=== PATIENT | male | born 1975 | race American Indian/Alaskan Native ===

== ENCOUNTER 2017-03-29 11:38 | Emergency (ER) | payer OTHER ==
[2017-03-29 12:03] VITALS: BP 145/88
[2017-03-29 13:18] LABS: Bilirubin,Urine NEG (Negative); Blood,Urine NEG (Negative); Ketones,Urine NEG (Negative); Leukocyte Esterase,Urine NEG (Negative); Mucus,Urine FEW /HPF; Nitrite,Urine NEG (Negative); Protein,Urine <15 mg/dL mg/dL (Negative); Urobilinogen,Urine < 2.0 mg/dL (<2.0); WBC,Urine < 1.0 /HPF (0.0-6.0)
[2017-03-29] MEDS ORDERED: TORADOL IM ONE (13:44)
--- NOTE | 2017-03-29 13:52 | Emergency Department Report ---
ED Back Pain/Injury HPI - General Chief Complaint: Back Pain/Injury Stated Complaint: BACK PAIN Time Seen by Provider: 03/29/17 13:06 Source: patient Limitations: No Limitations - History of Present Illness Initial Comments: This is a 41-year-old male nontoxic, well nourished in appearance, no acute signs of distress presents to the ED with c/o of chronic intermittent low back pain. Patient stated this past 2 days symptoms are getting worse but denies any trauma to the back. Patient stated sometimes the pain radiates towards right lower extremity. 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 Described the pain as aching with level of 8 out of 10. Patient denies any trauma. Denies any numbness, tingling, fever, chills, headache, stiff neck, chest pain, short of breath dysuria, bladder or bowel stability, polyuria, or hematuria. She denies any abdominal pain or flank pain. Denies any allergies with past medical history includes hypertension. MD Complaint: back pain -: year(s) Similar Symptoms Previously: Yes Place: work Radiation: none Severity: mild Severity scale (0 -10): 8 Quality: aching Consistency: intermittent Improves With: immobilization, supine Worsens With: sitting upright Associated Symptoms: denies other symptoms. denies: confusion, weakness, chest pain, numbness, difficulty walking, cough, difficulty urinating, diaphoresis, incontinence, fever/chills, constipation, headaches, abdominal pain, loss of appetite, malaise, nausea/vomiting, rash, seizure, shortness of breath, syncope - Related Data Previous Rx's Medication Instructions Recorded Last Taken Type Cyclobenzaprine [Flexeril] 10 mg PO BID PRN #10 tablet 03/29/17 Unknown Rx Ibuprofen [Motrin] 600 mg PO Q8H PRN #30 tablet 03/29/17 Unknown Rx Allergies Allergy/AdvReac Type Severity Reaction Status Date / Time No Known Allergies Allergy Unverified 03/29/17 11:58 ED Review of Systems ROS: Stated complaint: BACK PAIN Other details as noted in HPI Constitutional: denies: chills, fever Eyes: denies: eye pain, eye discharge, vision change ENT: denies: ear pain, throat pain Respiratory: denies: cough, shortness of breath, wheezing Cardiovascular: denies: chest pain, palpitations Endocrine: no symptoms reported Gastrointestinal: denies: abdominal pain, nausea, diarrhea Genitourinary: denies: urgency, dysuria Musculoskeletal: back pain. denies: joint swelling, arthralgia Skin: denies: rash, lesions Neurological: denies: headache, weakness, paresthesias Psychiatric: denies: anxiety, depression Hematological/Lymphatic: denies: easy bleeding, easy bruising ED Past Medical Hx - Past Medical History Previous Medical History?: Yes Hx Hypertension: Yes Additional medical history: Back pain, heart murmur - Surgical History Past Surgical History?: No - Social History Smoking Status: Current Every Day Smoker Substance Use Type: Alcohol, Marijuana, Prescribed - Medications Home Medications: Home Medications Medication Instructions Recorded Confirmed Last Taken Type Cyclobenzaprine [Flexeril] 10 mg PO BID PRN #10 tablet 03/29/17 Unknown Rx Ibuprofen [Motrin] 600 mg PO Q8H PRN #30 tablet 03/29/17 Unknown Rx ED Physical Exam - General Limitations: No Limitations General appearance: alert, in no apparent distress - Head Head exam: Present: atraumatic, normocephalic - Eye Eye exam: Present: normal appearance, PERRL, EOMI. Absent: scleral icterus, conjunctival injection, nystagmus, periorbital swelling, periorbital tenderness Pupils: Present: normal accommodation - ENT ENT exam: Present: normal exam, normal orophraynx, mucous membranes moist, TM's normal bilaterally, normal external ear exam - Neck Neck exam: Present: normal inspection, full ROM. Absent: tenderness, meningismus, lymphadenopathy, thyromegaly - Respiratory Respiratory exam: Present: normal lung sounds bilaterally. Absent: respiratory distress, wheezes, rales, rhonchi, stridor, chest wall tenderness, accessory muscle use, decreased breath sounds, prolonged expiratory - Cardiovascular Cardiovascular Exam: Present: regular rate, normal rhythm, normal heart sounds. Absent: bradycardia, tachycardia, irregular rhythm, systolic murmur, diastolic murmur, rubs, gallop - GI/Abdominal GI/Abdominal exam: Present: soft, normal bowel sounds. Absent: distended, tenderness, guarding, rebound, rigid, diminished bowel sounds - Rectal Rectal exam: Present: deferred - Extremities Exam Extremities exam: Present: normal inspection, full ROM, normal capillary refill. Absent: tenderness, pedal edema, joint swelling, calf tenderness - Back Exam Back exam: Present: normal inspection, full ROM, paraspinal tenderness (right side lumbar region). Absent: tenderness, CVA tenderness (R), CVA tenderness (L) , muscle spasm, vertebral tenderness, rash noted - Expanded Back Exam Expanded Back exam: Present: normal rectal tone (as per pt). Absent: saddle anesthesia Back exam: Negative Straight Leg Raising: Left, Right - Neurological Exam Neurological exam: Present: alert, oriented X3, CN II-XII intact, normal gait, reflexes normal - Psychiatric Psychiatric exam: Present: normal affect, normal mood - Skin Skin exam: Present: warm, dry, intact, normal color. Absent: rash ED Course Vital Signs 03/29/17 11:58 Temperature 98.6 F Pulse Rate 76 Respiratory 20 Rate Blood Pressure 145/88 O2 Sat by Pulse 98 Oximetry - Reevaluation(s) Reevaluation #1: 03/29/17 13:51 Patient is speaking in full sentences with no signs of distress noted. ED Medical Decision Making - Medical Decision Making 46-year-old male that presents with low back strain. Patient was examined by me patient stable. There is no spinal tenderness. Nexus criteria negative for imaging. Patient received Toradol in the ED with persistent symptoms are improving and are subsided. UA obtained with normal limits. Patient be treated with Flexeril and Motrin at discharge. Patient was instructed to Follow -up with a primary care doctor in 3-5 days or if symptoms worsen and continue return to emergency room as soon as possible. At time time of discharge, the patient does not seem toxic or ill in appearance. No acute signs of distress noted. Patient agrees to discharge treatment plan of care. No further questions noted by the patient. Critical care attestation.: If time is entered above; I have spent that time in minutes in the direct care of this critically ill patient, excluding procedure time. ED Disposition Clinical Impression: Low back strain Qualifiers: Encounter type: initial encounter Qualified Code(s): S39.012A - Strain of muscle, fascia and tendon of lower back, initial encounter Disposition: TO HOME OR SELFCARE Is pt being admited?: No Does the pt Need Aspirin: No Condition: Stable Instructions: Low Back Strain (ED), Ibuprofen (By mouth), Cyclobenzaprine (By mouth) Additional Instructions: Follow-up with your primary care doctor in 3-5 days or if symptoms worsen such as bladder or bowel stability, chest pain, short of breath, numbness or tingling sensation in extremities, headache, dizziness, visual changes, nausea vomiting, or abdominal pain, return back to emergency room as was possible. Take ibuprofen and Flexeril as prescribed. Do not operate heavy machinery while taking Flexeril due to sedation Prescriptions: Cyclobenzaprine [Flexeril] 10 mg PO BID PRN #10 tablet PRN Reason: Muscle Spasm Ibuprofen [Motrin] 600 mg PO Q8H PRN #30 tablet PRN Reason: Pain Referrals: GEOFFREY JARAMILLO MD [Primary Care Provider] - 3-5 Days JEANETTE TAYLOR MD [Staff Physician] - 3-5 Days [facility] [Outside] - 3-5 Days [facility] [Outside] - 3-5 Days Forms: Work/School Release Form(ED)
== END 2017-03-29 14:32 | disposition home or self-care (01) ==
LOC: ED 11:38
DX: S39.012A Strain of muscle, fascia and tendon of lower back, initial encounter (principal); I10 Essential (primary) hypertension; F17.200 Nicotine dependence, unspecified, uncomplicated; F12.10 Cannabis abuse, uncomplicated; X58.XXXA Exposure to other specified factors, initial encounter; Y93.89 Activity, other specified; Y99.8 Other external cause status; Y92.89 Other specified places as the place of occurrence of the external cause
CPT/HCPCS: 81001; 96372; 99282; J1885

== ENCOUNTER 2017-07-05 12:32 | Outpatient (CLI) | payer OTHER ==
--- NOTE | 2017-07-05 15:27 | Mammography Report ---
BILATERAL DIGITAL DIAGNOSTIC MAMMOGRAM with CAD : 07/05/17 CLINICAL: 41-year-old male with a right breast lump. COMPARISON:None. FINDINGS: The breasts are almost entirely fatty. Minimal bilateral subareolar fibroglandular densities . A low density poorly marginated mass is identified at a right inner palpable marker. It measures approximately 11 mm on the CC view. IMPRESSION: A right inner breast mass requiring further workup with ultrasound. BI-RADS CATEGORY: 0--Needs Additional Imaging RECOMMENDATION: Return for a targeted right breast ultrasound. COMMENT: Patient follow-up letters are generated by our [employer] application.
== END 2017-07-05 12:33 | disposition home or self-care (01) ==
LOC: SPVWC 12:32
PROVIDERS: ATTEND Internal Medicine
DX: N63.10 Unspecified lump in the right breast, unspecified quadrant (principal)
CPT/HCPCS: 77066

== ENCOUNTER 2017-09-11 08:37 | Outpatient (CLI) | payer OTHER ==
--- NOTE | 2017-09-11 14:10 | Ultrasound Report ---
RIGHT BREAST ULTRASOUND: 09/11/17 08:37:00 CLINICAL: 42-year-old male. This is a followup to 07/05/17 mammogram. There was a palpable lump at the time of the mammogram but he no longer feels it. COMPARISON: 07/05/17 mammogram FINDINGS: Ultrasound of the inner right breast was performed from 1 o'clock to 4 o'clock and demonstrated normal fattystructures. No mass, cyst or shadowing. IMPRESSION: BI-RADS RECOMMENDATION:
== END 2017-09-11 08:38 | disposition home or self-care (01) ==
LOC: SPVWC 08:37
PROVIDERS: ATTEND Internal Medicine
DX: N63.10 Unspecified lump in the right breast, unspecified quadrant (principal)

== ENCOUNTER 2020-05-28 14:32 | Emergency (ER) | payer SELFPAY ==
--- NOTE | 2020-05-28 14:49 | Event Note ---
ED Screening Note Date of service: 05/28/20 Time: 14:47 ED Screening Note: Patient complains of shortness of breath, racing heart, and dizziness Symptoms started around May 10 and states tested positive on 05/13 with Covid States heart rate at home was 113 This initial assessment/diagnostic orders/clinical plan/treatment(s) is/are subject to change based on patients health status, clinical progression and re- assessment by fellow clinical providers in the ED. Further treatment and workup at subsequent clinical providers discretion. Patient/guardian urged not to elope from the ED as their condition may be serious if not clinically assessed and managed. Initial orders include: Labs Chest x-ray
[2020-05-28 14:53] VITALS: BP 153/98
[2020-05-28 15:40] LABS: Basophils # (Auto) 0.1 K/mm3 (0.0-0.1); Basophils % (Auto) 1.3 % (0.0-1.8); Eosinophils # (Auto) 0.1 K/mm3 (0.0-0.4); Eosinophils % (Auto) 1.5 % (0.0-4.3); Hematocrit 45.4 % (35.5-45.6); Hemoglobin 15.2 gm/dl (11.8-15.2); Lymphocytes # (Auto) 1.7 K/mm3 (1.2-5.4); Lymphocytes % (Auto) 26.1 % (13.4-35.0); Mean Corpuscular HGB Conc 34 % (32-34); Mean Corpuscular Volume 86 fl (84-94); Monocytes # (Auto) 0.6 K/mm3 (0.0-0.8); Monocytes % (Auto) 9.6 % (0.0-7.3); Platelet Count 214 K/mm3 (140-440); Red Blood Count 5.31 M/mm3 (3.65-5.03); Red Cell Distribution Width 13.5 % (13.2-15.2)
--- NOTE | 2020-05-28 15:46 | XRay Report ---
CHEST 2 VIEWS INDICATION / CLINICAL INFORMATION: SOB, +covid. COMPARISON: None available. FINDINGS: SUPPORT DEVICES: None. HEART / MEDIASTINUM: No significant abnormality. LUNGS / PLEURA: There are mild patchy bilateral lower lobe opacities. No pneumothorax. ADDITIONAL FINDINGS: No significant additional findings. IMPRESSION: 1. Mild patchy bilateral lower lobe opacities likely indicating viral pneumonia given provided histor y. Signer Name: Abilio Tay MD Signed: 05/28/2020 3:42 PM Workstation Name: [id number]
[2020-05-28 15:50] LABS: Alanine Aminotransferase 27 units/L (7-56); Albumin 4.7 g/dL (3.9-5); BUN/Creatinine Ratio 10; Blood Urea Nitrogen 10 mg/dL (9-20); Calcium 10.2 mg/dL (8.4-10.2); Hemolysis Index 40
--- NOTE | 2020-05-28 19:47 | Emergency Department Report ---
ED General Adult HPI - General Chief complaint: High BP Stated complaint: RAPID HEARTBEAT/HIGH BLOOD PRESSURE/COVID Time Seen by Provider: 05/28/20 14:47 Source: patient Mode of arrival: Ambulatory Limitations: No Limitations - History of Present Illness Initial comments: Patient is a 44-year-old male who presents emergency room with complaints of concern for elevated blood pressure. Patient states that he takes his blood pressure throughout the day and it fluctuates. He states he is on metoprolol and amlodipine. He states that he has an occasional mild headache but has no headache currently. Patient states that he also tested positive for COVID-19 on 05/13/2020. He denies any fever, cough, chest pain, shortness of breath, vomiting, diarrhea, leg swelling, vision changes, numbness, weakness. He has a past medical history of hypertension and sleep apnea. No allergies to medications. He states that he does have a primary care doctor and has an appointment scheduled for 06/02/2020. - Related Data Previous Rx's Medication Instructions Recorded Last Taken Type Cyclobenzaprine [Flexeril] 10 mg PO BID PRN #10 tablet 03/29/17 Unknown Rx Ibuprofen [Motrin] 600 mg PO Q8H PRN #30 tablet 03/29/17 Unknown Rx predniSONE [Deltasone] 20 mg PO QDAY 5 Days #5 tab 05/28/20 Unknown Rx Allergies Allergy/AdvReac Type Severity Reaction Status Date / Time No Known Allergies Allergy Unverified 03/29/17 11:58 ED Review of Systems ROS: Stated complaint: RAPID HEARTBEAT/HIGH BLOOD PRESSURE/COVID Other details as noted in HPI ED Past Medical Hx - Past Medical History Hx Hypertension: Yes Additional medical history: Back pain, heart murmur - Social History Smoking Status: Never Smoker - Medications Home Medications: Home Medications Medication Instructions Recorded Confirmed Last Taken Type Cyclobenzaprine [Flexeril] 10 mg PO BID PRN #10 tablet 03/29/17 Unknown Rx Ibuprofen [Motrin] 600 mg PO Q8H PRN #30 tablet 03/29/17 Unknown Rx predniSONE [Deltasone] 20 mg PO QDAY 5 Days #5 tab 05/28/20 Unknown Rx ED Physical Exam - General Limitations: No Limitations ED Course Vital Signs 05/28/20 14:50 Temperature 99.3 F Pulse Rate 93 H Respiratory 16 Rate Blood Pressure 153/98 O2 Sat by Pulse 98 Oximetry ED Medical Decision Making - Lab Data Result diagrams: 05/28/20 15:03 05/28/20 15:03 Lab Results 05/28/20 05/28/20 Range/Units 15:03 15:03 WBC 6.6 (4.5-11.0) K/mm3 RBC 5.31 H (3.65-5.03) M/mm3 Hgb 15.2 (11.8-15.2) gm/dl Hct 45.4 (35.5-45.6) % MCV 86 (84-94) fl MCH 29 (28-32) pg MCHC 34 (32-34) % RDW 13.5 (13.2-15.2) % Plt Count 214 (140-440) K/mm3 Lymph % (Auto) 26.1 (13.4-35.0) % Nicholas % (Auto) 9.6 H (0.0-7.3) % Eos % (Auto) 1.5 (0.0-4.3) % Baso % (Auto) 1.3 (0.0-1.8) % Lymph # (Auto) 1.7 (1.2-5.4) K/mm3 Nicholas # (Auto) 0.6 (0.0-0.8) K/mm3 Eos # (Auto) 0.1 (0.0-0.4) K/mm3 Baso # (Auto) 0.1 (0.0-0.1) K/mm3 Seg Neutrophils % 61.5 (40.0-70.0) % Seg Neutrophils # 4.1 (1.8-7.7) K/mm3 Sodium 135 L (137-145) mmol/L Potassium 4.7 (3.6-5.0) mmol/L Chloride 98.7 (98-107) mmol/L Carbon Dioxide 26 (22-30) mmol/L Anion Gap 15 mmol/L BUN 10 (9-20) mg/dL Creatinine 1.0 (0.8-1.3) mg/dL Estimated GFR > 60 ml/min BUN/Creatinine Ratio 10 % Glucose 117 H (75-100) mg/dL Calcium 10.2 (8.4-10.2) mg/dL Total Bilirubin 0.70 (0.1-1.2) mg/dL AST 23 (5-40) units/L ALT 27 (7-56) units/L Alkaline Phosphatase 81 (35-129) units/L Total Protein 7.8 (6.3-8.2) g/dL Albumin 4.7 (3.9-5) g/dL Albumin/Globulin Ratio 1.5 % - Radiology Data Radiology results: report reviewed Ordering Physician: RANDY STORM Date of Service: 05/28/20 Procedure(s): XR chest routine 2V Accession Number(s): [id number] cc: RANDY STORM Fluoro Time In Minutes: CHEST 2 VIEWS INDICATION / CLINICAL INFORMATION: SOB, +covid. COMPARISON: None available. FINDINGS: SUPPORT DEVICES: None. HEART / MEDIASTINUM: No significant abnormality. LUNGS / PLEURA: There are mild patchy bilateral lower lobe opacities. No pneumothorax. ADDITIONAL FINDINGS: No significant additional findings. IMPRESSION: 1. Mild patchy bilateral lower lobe opacities likely indicating viral pneumonia given provided history. Signer Name: Abilio Tay MD Signed: 05/28/2020 3:42 PM Workstation Name: [id number] Transcribed By: DEIDRA Dictated By: Abilio Tay MD Electronically Authenticated By: Abilio Tay MD Signed Date/Time: 05/28/201541 DD/ 40 TD/TT: - Medical Decision Making Patient is a 44-year-old male who presents emergency room with complaints of concern for elevated blood pressure. Patient states that he takes his blood pressure throughout the day and it fluctuates. He states he is on metoprolol and amlodipine. He states that he has an occasional mild headache but has no headache currently. Patient states that he also tested positive for COVID-19 on 05/13/2020. He denies any fever, cough, chest pain, shortness of breath, vomiting, diarrhea, leg swelling, vision changes, numbness, weakness. He has a past medical history of hypertension and sleep apnea. No allergies to medications. He states that he does have a primary care doctor and has an appoi ntment scheduled for 06/02/2020. VSS, no significant HTN, no tachycardia, no hypoxia. CXR: 1. Mild patchy bilateral lower lobe opacities likely indicating viral pneumonia given provided history. labs are stable. Discussed all results with patient and answered questions. Discussed return precautions with patient. Patient given prescription for prednisone. Advised patient Please take medication as prescribed. Increase your water intake. May take Tylenol as needed for headache. Follow-up with your primary care doctor. Please keep a blood pressure log and take this to your primary care doctor. Eat a low-sodium diet. Incorporate 30 to 60 minutes of daily exercise. Consider weight manage ment. Return to emergency room for any new or worsening symptoms. Critical care attestation.: If time is entered above; I have spent that time in minutes in the direct care of this critically ill patient, excluding procedure time. ED Disposition Clinical Impression: Viral pneumonia, Fluctuating blood pressure Headache Qualifiers: Headache type: unspecified Headache chronicity pattern: acute headache Intractability: not intractable Qualified Code(s): R51.9 - Headache, unspecified Disposition: DC- TO HOME OR SELFCARE Is pt being admited?: No Does the pt Need Aspirin: No Condition: Stable Instructions: COVID-19, Hypertension, Adult, [id number], Low-Sodium Eating Plan, Bacterial Pneumonia (ED) Additional Instructions: Please take medication as prescribed. Increase your water intake. May take Tylenol as needed for headache. Follow-up with your primary care doctor. Please keep a blood pressure log and take this to your primary care doctor. Eat a low-sodium diet. Incorporate 30 to 60 minutes of daily exercise. Consider weight management. Return to emergency room for any new or worsening symptoms. Prescriptions: predniSONE [Deltasone] 20 mg PO QDAY 5 Days #5 tab Referrals: GEOFFREY JARAMILLO MD [Primary Care Provider] - 2-3 Days Time of Disposition: 19:46 Print Language: CHINESE
== END 2020-05-28 15:00 | disposition home or self-care (01) ==
LOC: ED 14:32
DX: J12.9 Viral pneumonia, unspecified (principal); I99.8 Other disorder of circulatory system; R51.9 Headache, unspecified; I10 Essential (primary) hypertension; Z79.899 Other long term (current) drug therapy
CPT/HCPCS: 36415; 71046; 80053; 85025; 99283